=== PATIENT | female | born 1965 | race Caucasian/White ===

== ENCOUNTER 2019-05-18 | Emergency (ER) | payer MEDICARE, OTHER ==
[~2019-05-18] MED LIST: AVELOX400 MG OR; FOCALIN XR10 MG PO; LORTAB 5 OR; METOPROL TAR25 M1 PO; NO MEDS; TRAMADOL HCL50 MG PO
[2019-05-18] MEDS ORDERED: ADDERALL30 MG PO (19:51)
[2019-05-18] MEDS ORDERED: AMITRIPTYLIN10 MG PO (19:52)
[2019-05-18] MEDS ORDERED: CLINDAMYCIN300 M1 PO (20:09)
== END 2019-05-18 20:16 | disposition home or self-care (01) ==
DX: K04.7 Periapical abscess without sinus (principal); F17.200 Nicotine dependence, unspecified, uncomplicated